=== PATIENT | male | born 1960 | race Caucasian/White ===

== ENCOUNTER 2017-08-02 16:15 | Emergency (ER) | payer BC, OTHER ==
[~2017-08-02] VITALS: Ht 182.9 cm; Wt 96.8 kg
[2017-08-02 16:22] VITALS: TEMP 36.8; Ht 182.9 cm; Wt 96.8 kg
[2017-08-02 17:19] LABS: BASO % 0.6 %; BASO ABS # 0.04 K/uL (0-0.2); EOS % 0.9 %; EOS ABS # 0.06 K/uL (0-0.5); HEMATOCRIT 46.6 % (42-52); HEMOGLOBIN 16.2 g/dL (14.0-18.0); IG# 0.01 K/uL (0.00-0.02); LYMPH % 21.6 %; LYMPH ABS # 1.48 K/uL (1.2-3.4); MEAN CELL VOLUME 90.3 fL (80-100); MEAN CORPUSCULAR HEMOGLOBIN 31.4 pg (25-34); MEAN CORPUSCULAR HGB CONC 34.8 g/dl (32-36); MEAN PLATELET VOLUME 10.5 fL (7.4-10.4); MONO % 7.9 %; MONO ABS # 0.54 K/uL (0.11-0.59); NEUT % 68.9 %; NEUT ABS # 4.71 K/uL (1.4-6.5); PLATELET COUNT 176 K/uL (130-400); RED CELL DISTRIBUTION WIDTH CV 12.9 % (11.5-14.5); RED CELL DISTRIBUTION WIDTH SD 43.1 fL (36.4-46.3); WHITE BLOOD COUNT 6.84 K/uL (4.8-10.8)
[2017-08-02 17:40] LABS: ALBUMIN 4.4 gm/dl (3.4-5.0); ALT/SGPT 33 U/L (12-78); AST/SGOT 15 U/L (15-37); BLOOD UREA NITROGEN 16 mg/dl (7-18); CALCIUM 9.8 mg/dl (8.5-10.1); CARBON DIOXIDE 29 mmol/L (21-32); CREATININE 1.16 mg/dl (0.60-1.40); GLUCOSE 99 mg/dl (70-99); POTASSIUM 4.2 mmol/L (3.5-5.1); SODIUM 139 mmol/L (136-145)
[2017-08-02 17:53] LABS: ALKALINE PHOSPHATASE 76 U/L (45-117); TOTAL PROTEIN 7.7 gm/dl (6.4-8.2)
[2017-08-02] MEDS ORDERED: MULT-220 PO (18:20)
[2017-08-02] MEDS ORDERED: ASPI81TA28 PO (18:20)
[2017-08-02] MEDS ORDERED: ATOR10TA82 PO (18:20)
--- NOTE | 2017-08-02 18:50 | EMERGENCY ROOM VISIT NOTE ---
History First contact with patient: 16:36 Chief Complaint: ARM PAIN Stated Complaint: PAIN IN LEFT ARM/SHOULDER, REFERRED BY MICHAEL History of Present Illness The patient is a 57 year old male h/o hyperlipidemia, prediabetes who presents to the Emergency Room with complaints of left shoulder and arm pain. He was seen at the [facility] in. He reports getting a new stand up desk last week. He notes some neck stiffness and bilateral shoulder pain since getting this desk. He notes that his keyboard and mouse were not ergonomically placed and might have contributed to his soreness. However he noted slight worsening of left sided arm pain and shoulder pain that wasn't responding to advil (400 mg 3 times daily). He denies chest pain, shortness of breath at rest or exertion , nausea, vomiting, diaphoresis, weakness of extremities. Non smoker Alcohol on weekends Denies drug use Review of Systems See above for pertinent positives & negatives. A total of 10 systems reviewed and were otherwise negative. Past Medical/Surgical History Medical Problems: (1) Hyperlipidemia Family History Heart disease Social History Smoking Status: Never Smoker Alcohol Use: occasionally Drug Use: none Marital Status: Housing Status: lives with family Occupation Status: employed Current/Historical Medications Scheduled Aspirin (Aspirin Ec), 81 MG PO DAILY Atorvastatin (Lipitor), 10 MG PO DAILY Multiple Vitamins W/ Minerals (Multi For Him), 1 TAB PO DAILY Physical Exam Vital Signs Date Time Temp Pulse Resp B/P (MAP) Pulse Ox O2 Delivery O2 Flow Rate FiO2 08/02/17 19:05 61 18 110/70 100 Room Air 08/02/17 18:12 68 17 114/72 97 Room Air 08/02/17 16:36 63 08/02/17 16:22 36.8 65 18 128/84 97 Room Air Physical Exam GENERAL: Patient is awake alert in no acute distress EYES: The conjunctivae are clear. The pupils are round and reactive. EARS, NOSE, MOUTH AND THROAT: Mucous membranes are moist NECK: The neck is nontender and supple. RESPIRATORY: Normal respiratory effort, no wheezing rhonchi or rales CARDIOVASCULAR: Regular rate and rhythm, no murmurs, normal s1s2 GASTROINTESTINAL: The abdomen is soft. Bowel sounds are present in all quadrants. Abdomen is nontender PELVIS: The Pelvis is stable. No tenderness to palpation is noted. BACK: no cva tenderness MUSCULOSKELETAL/EXTREMITIES: There is no evidence of gross deformity full range of motion is noted in the hips and shoulders SKIN: There is no obvious evidence of any rash. NEUROLOGIC: Patient is awake alert and oriented x3 Medical Decision & Procedures Laboratory Results 08/02/17 17:05 Red Blood Count 5.16, Mean Corpuscular Volume 90.3, Mean Corpuscular Hemoglobin 31.4, Mean Corpuscular Hemoglobin Concent 34.8, Mean Platelet Volume 10.5, Neutrophils (%) (Auto) 68.9, Lymphocytes (%) (Auto) 21.6, Monocytes (%) (Auto) 7.9, Eosinophils (%) (Auto) 0.9, Basophils (%) (Auto) 0.6, Neutrophils # (Auto) 4.71, Lymphocytes # (Auto) 1.48, Monocytes # (Auto) 0.54, Eosinophils # (Auto) 0.06, Basophils # (Auto) 0.04 08/02/17 17:05 Test 08/02/17 17:05 08/02/17 17:12 White Blood Count 6.84 K/uL (4.8-10.8) Red Blood Count 5.16 M/uL (4.7-6.1) Hemoglobin 16.2 g/dL (14.0-18.0) Hematocrit 46.6 % (42-52) Mean Corpuscular Volume 90.3 fL (80-100) Mean Corpuscular Hemoglobin 31.4 pg (25-34) Mean Corpuscular Hemoglobin Concent 34.8 g/dl (32-36) Platelet Count 176 K/uL (130-400) Mean Platelet Volume 10.5 fL (7.4-10.4) Neutrophils (%) (Auto) 68.9 % Lymphocytes (%) (Auto) 21.6 % Monocytes (%) (Auto) 7.9 % Eosinophils (%) (Auto) 0.9 % Basophils (%) (Auto) 0.6 % Neutrophils # (Auto) 4.71 K/uL (1.4-6.5) Lymphocytes # (Auto) 1.48 K/uL (1.2-3.4) Monocytes # (Auto) 0.54 K/uL (0.11-0.59) Eosinophils # (Auto) 0.06 K/uL (0-0.5) Basophils # (Auto) 0.04 K/uL (0-0.2) RDW Standard Deviation 43.1 fL (36.4-46.3) RDW Coefficient of Variation 12.9 % (11.5-14.5) Immature Granulocyte % (Auto) 0.1 % Immature Granulocyte # (Auto) 0.01 K/uL (0.00-0.02) Anion Gap 6.0 mmol/L (3-11) Est Creatinine Clear Calc Drug Dose 84.8 ml/min Estimated GFR () 80.6 Estimated GFR (Non- 69.5 BUN/Creatinine Ratio 13.7 (10-20) Calcium Level 9.8 mg/dl (8.5-10.1) Total Bilirubin 0.5 mg/dl (0.2-1) Aspartate Amino Transf (AST/SGOT) 15 U/L (15-37) Alanine Aminotransferase (ALT/SGPT) 33 U/L (12-78) Alkaline Phosphatase 76 U/L (45-117) Troponin I < 0.015 ng/ml (0-0.045) Total Protein 7.7 gm/dl (6.4-8.2) Albumin 4.4 gm/dl (3.4-5.0) Globulin 3.3 gm/dl (2.5-4.0) Albumin/Globulin Ratio 1.3 (0.9-2) Bedside Troponin I < 0.030 ng/ml (0-0.045) Medical Decision This is a 57 y/o M who presents with Left sided arm pain. DDx: AMI, ACS, Pericarditis, MSK, Fractures, Shingles, PE, Pneumonia etc. EKG shows sinus Bradycardia with first degree AV block. CBC and CMP were normal. Troponin was negative. Chest Xray was negative. The patients symptoms seem more musculoskeletal in origin dave given recent change in work station. He does not have any chest pain or exertional symptoms. We recommended close follow up with PCP and return to the ER if chest pain/ shortness of breath or other concerns. Blood Pressure Screening Patient's blood pressure: Normal blood pressure Impression Primary Impression: Arm pain, left Departure Information Dispostion Home / Self-Care Referrals John Gustafson M.D. (PCP) Forms HOME CARE DOCUMENTATION FORM, IMPORTANT VISIT INFORMATION Patient Instructions My [facility] [employer] Additional Instructions Please follow up with your PCP in 3-5 days. If you experience any chest pain, shortness of breath at rest or exertion or you have other concerns, please come back to the ED/call [phone]
[2017-08-02 19:05] VITALS: BP 110/70; PULSE 61; O2SAT 100
--- NOTE | 2017-08-02 23:16 | EMERGENCY ROOM VISIT NOTE ---
History Report prepared by Yanely: Romina Mcwilliams Under the Supervision of: Dr. Brandt Becker D.O. First contact with patient: 16:36 Chief Complaint: ARM PAIN Stated Complaint: PAIN IN LEFT ARM/SHOULDER, REFERRED BY DOC History of Present Illness The patient is a 57 year old male who presents to the Emergency Room with complaints of persistent left arm and shoulder pain starting yesterday. The patient was sent to the ED from the clinic for a cardiac evaluation. The patient has a family history of heart disease. He currently rates his discomfort as a 4/10 in severity. He has tried taking Tylenol to no significant relief. The patient notes that he got a standing desk at work recently and has thought the pain might be muscular. He had an EKG at the clinic which found 1st degree AV block. He has a history of borderline diabetes and hyperlipidemia. He denies any SOB, nausea, or vomiting. Source of History: patient Onset: yesterday Position: arm (left) Symptom Intensity: 4/10 Quality: other (pain) Timing: other (persistent) Associated Symptoms: No SOB, No nausea, No vomiting Review of Systems See HPI for pertinent positives & negatives. A total of 10 systems reviewed and were otherwise negative. Past Medical & Surgical Medical Problems: (1) Hyperlipidemia Family History Heart disease Social History Smoking Status: Never Smoker Marital Status: Current/Historical Medications Scheduled Aspirin (Aspirin Ec), 81 MG PO DAILY Atorvastatin (Lipitor), 10 MG PO DAILY Multiple Vitamins W/ Minerals (Multi For Him), 1 TAB PO DAILY Allergies Coded Allergies: No Known Allergies (Unverified , 08/02/17) Physical Exam Vital Signs Date Time Temp Pulse Resp B/P (MAP) Pulse Ox O2 Delivery O2 Flow Rate FiO2 08/02/17 19:05 61 18 110/70 100 Room Air 08/02/17 18:12 68 17 114/72 97 Room Air 08/02/17 16:36 63 08/02/17 16:22 36.8 65 18 128/84 97 Room Air Physical Exam CONSTITUTIONAL/VITAL SIGNS: Reviewed / noted above. GENERAL: Non-toxic in appearance. INTEGUMENTARY: Warm, dry, and [place]. HEAD: Normocephalic. EYES: without scleral icterus or trauma. ENT/OROPHARYNX: clear and moist. LYMPHADENOPATHY/NECK: Is supple without lymphadenopathy or meningismus. RESPIRATORY: Lungs clear and equal. CARDIOVASCULAR: Regular rate and rhythm. GI/ABDOMEN: Soft and nontender. No organomegaly or pulsatile mass. No rebound or guarding. Normal bowel sounds. EXTREMITIES: Warm and well perfused. BACK: No CVA tenderness. NEUROLOGICAL: Intact without focal deficits. PSYCHIATRIC: normal affect. MUSCULOSKELETAL: Normally developed with good muscle tone. Medical Decision & Procedures Laboratory Results 08/02/17 17:05 Red Blood Count 5.16, Mean Corpuscular Volume 90.3, Mean Corpuscular Hemoglobin 31.4, Mean Corpuscular Hemoglobin Concent 34.8, Mean Platelet Volume 10.5, Neutrophils (%) (Auto) 68.9, Lymphocytes (%) (Auto) 21.6, Monocytes (%) (Auto) 7.9, Eosinophils (%) (Auto) 0.9, Basophils (%) (Auto) 0.6, Neutrophils # (Auto) 4.71, Lymphocytes # (Auto) 1.48, Monocytes # (Auto) 0.54, Eosinophils # (Auto) 0.06, Basophils # (Auto) 0.04 08/02/17 17:05 Test 08/02/17 17:05 08/02/17 17:12 White Blood Count 6.84 K/uL (4.8-10.8) Red Blood Count 5.16 M/uL (4.7-6.1) Hemoglobin 16.2 g/dL (14.0-18.0) Hematocrit 46.6 % (42-52) Mean Corpuscular Volume 90.3 fL (80-100) Mean Corpuscular Hemoglobin 31.4 pg (25-34) Mean Corpuscular Hemoglobin Concent 34.8 g/dl (32-36) Platelet Count 176 K/uL (130-400) Mean Platelet Volume 10.5 fL (7.4-10.4) Neutrophils (%) (Auto) 68.9 % Lymphocytes (%) (Auto) 21.6 % Monocytes (%) (Auto) 7.9 % Eosinophils (%) (Auto) 0.9 % Basophils (%) (Auto) 0.6 % Neutrophils # (Auto) 4.71 K/uL (1.4-6.5) Lymphocytes # (Auto) 1.48 K/uL (1.2-3.4) Monocytes # (Auto) 0.54 K/uL (0.11-0.59) Eosinophils # (Auto) 0.06 K/uL (0-0.5) Basophils # (Auto) 0.04 K/uL (0-0.2) RDW Standard Deviation 43.1 fL (36.4-46.3) RDW Coefficient of Variation 12.9 % (11.5-14.5) Immature Granulocyte % (Auto) 0.1 % Immature Granulocyte # (Auto) 0.01 K/uL (0.00-0.02) Anion Gap 6.0 mmol/L (3-11) Est Creatinine Clear Calc Drug Dose 84.8 ml/min Estimated GFR () 80.6 Estimated GFR (Non- 69.5 BUN/Creatinine Ratio 13.7 (10-20) Calcium Level 9.8 mg/dl (8.5-10.1) Total Bilirubin 0.5 mg/dl (0.2-1) Aspartate Amino Transf (AST/SGOT) 15 U/L (15-37) Alanine Aminotransferase (ALT/SGPT) 33 U/L (12-78) Alkaline Phosphatase 76 U/L (45-117) Troponin I < 0.015 ng/ml (0-0.045) Total Protein 7.7 gm/dl (6.4-8.2) Albumin 4.4 gm/dl (3.4-5.0) Globulin 3.3 gm/dl (2.5-4.0) Albumin/Globulin Ratio 1.3 (0.9-2) Bedside Troponin I < 0.030 ng/ml (0-0.045) Laboratory results as stated above per my review. ECG Per My Interpretation Indication: back/shoulder pain Rate (beats per minute): 56 Rhythm: sinus bradycardia Findings: 1st degree AV block, no ectopy, other (no ST elevation) ED Course 1736: Previous medical records were reviewed. The patient was evaluated in room B4B. A complete history and physical examination was performed. 1820: The patient was discharged home. Medical Decision the differential was considered includes musculoskeletal, acute myocardial infarction, acute coronary syndrome, myocarditis, pericarditis, pericardial effusions /tamponad, esophageal perforation, thoracic aortic dissection, pulmonary embolism, pneumonia, pneumothorax, pancreatitis, shingles, acute cholecystitis, perforated abdominal viscus. The patient was seen in conjunction with the resident. The patient presents with a chief complaint of left-sided arm pain. Further details are listed above. Patient recently had a change in his desk situation at work. He has not a desk where he has to stand but it is not quite high enough for him. He states that he has to lean forward using it. The patient felt that he had some musculoskeletal pain related to this and was seen by the PCP. The patient was sent here because they wanted to make sure it was not heart related. The patient's vital signs are normal. His physical exam was unremarkable. His EKG shows a sinus bradycardia at a rate of 56 with a first-degree AV block. His CBC and complete metabolic panel was unremarkable, troponin was negative and chest x-ray did not show acute disease. The patient's symptoms are not exertional in nature. It seems more muscular based on his recent changes at work. The patient is felt to be stable for discharge. Medication Reconcilliation Current Medication List: was personally reviewed by me Blood Pressure Screening Patient's blood pressure: Normal blood pressure Blood pressure disposition: Did not require urgent referral Impression Primary Impression: Arm pain, left Scribe Attestation The scribe's documentation has been prepared under my direction and personally reviewed by me in its entirety. I confirm that the note above accurately reflects all work, treatment, procedures, and medical decision making performed by me. Departure Information Dispostion Home / Self-Care Referrals John Gustafson M.D. (PCP) Forms HOME CARE DOCUMENTATION FORM, IMPORTANT VISIT INFORMATION Patient Instructions My [facility] Additional Instructions Please follow up with your PCP in 3-5 days. If you experience any chest pain, shortness of breath at rest or exertion or you have other concerns, please come back to the ED/call [phone]
== END 2017-08-02 19:13 | disposition home or self-care (01) ==
LOC: C.EDB 16:16
DX: M79.602 Pain in left arm (principal); E78.5 Hyperlipidemia, unspecified; R73.03 Prediabetes; Z79.82 Long term (current) use of aspirin; Z79.899 Other long term (current) drug therapy

== ENCOUNTER → 2017-10-01 | Outpatient (CLI) | payer OTHER ==
[~2017-10-01] MED LIST: ASPI81TA28 PO; ATOR10TA82 PO; MULT-220 PO
--- NOTE | 2017-10-01 10:31 | DIAGNOSTIC IMAGING REPORT ---
MRI CERVICAL WITHOUT CONTRAST CLINICAL HISTORY: Neck pain with left arm radiculopathy. Muscle weakness. Skin numbness. TECHNIQUE: Sagittal and axial T1, T2 and STIR images were obtained. COMPARISON STUDY: Conventional radiographic study dated 09/10/2017 There are no suspicious areas of marrow replacement. No intrinsic cervical cord lesions are visualized. C2-3: There is no evidence of disc bulge or focal herniation. There is no spinal or foraminal stenosis. C3-4: There is no evidence of disc bulge or focal herniation. There is no spinal or foraminal stenosis. C4-5: There are no disc bulges or focal herniations. There is no spinal or foraminal stenosis. C5-6 :There are no disc bulges or focal herniations. There is no spinal or foraminal stenosis. There is a right-sided perineural cyst C6-7: There is a tiny left paracentral disc protrusion. There is no significant spinal or foraminal stenosis. C7-T1: There is no evidence of disc bulge or focal herniation. There is no evidence of spinal or foraminal stenosis. IMPRESSION:Tiny left paracentral disc protrusion at the C 6-7 level. Electronically signed by: Wang Jones M.D. 10/01/2017 10:30 AM Dictated Date/Time: 10/01/2017 10:27 AM
== END | disposition home or self-care (01) ==
LOC: C.MRI 09:28
PROVIDERS: ATTEND Family Medicine
DX: M50.123 Cervical disc disorder at C6-C7 level with radiculopathy (principal)